=== PATIENT | female | born 1975 | race American Indian/Alaskan Native ===

== ENCOUNTER 2017-02-22 15:29 | Emergency (ER) | payer SELFPAY ==
[2017-02-22 21:08] LABS: Bacteria,Urine 1+ /HPF (Negative); Bilirubin,Urine NEG (Negative); Blood,Urine SM (Negative); Color,Urine Yellow (Yellow); Mucus,Urine 3+ /HPF; Nitrite,Urine NEG (Negative); Protein,Urine <15 mg/dL mg/dL (Negative); Urobilinogen,Urine < 2.0 mg/dL (<2.0)
[2017-02-22] MEDS ORDERED: NORCO 5/325 PO ONE (21:11)
[2017-02-22] MEDS ORDERED: FLEXERIL PO ONE (21:11)
[2017-02-22 21:15] LABS: HCG Qualitative,Urine Negative (Negative)
--- NOTE | 2017-02-22 21:21 | Emergency Department Report ---
ED Back Pain/Injury HPI - General Chief Complaint: Back Pain/Injury Stated Complaint: LOWER BACK PAIN Time Seen by Provider: 02/22/17 21:11 Source: patient Limitations: No Limitations - History of Present Illness Initial Comments: Patient 41-year-old -[place] female with a history of lumbar Patient states 4/10 lumbar pain radiating to her left lateral thigh 1 week no numbness tingling or paralysis no decreased range of motion no loss of decrease in bladder or bowel function patient denies injury fall or trauma MD Complaint: back pain Onset/Timin -: week(s) Similar Symptoms Previously: Yes Place: home Radiation: none, left leg Severity: moderate Severity scale (0 -10): 4 Quality: aching Consistency: intermittent Improves With: other (rest) Worsens With: movement, other (bending twisting) Associated Symptoms: denies other symptoms. denies: numbness, difficulty urinating, incontinence, fever/chills - Related Data Previous Rx's Medication Instructions Recorded Last Taken Type Acetaminophen 1,000 mg PO QID PRN #30 tablet 02/22/17 Unknown Rx Cephalexin [Keflex] 500 mg PO Q12HR #14 cap 02/22/17 Unknown Rx Cyclobenzaprine [Flexeril] 10 mg PO BID PRN #30 tablet 02/22/17 Unknown Rx Allergies Allergy/AdvReac Type Severity Reaction Status Date / Time aspirin Allergy Nausea Verified 02/22/17 16:42 ED Review of Systems ROS: Stated complaint: LOWER BACK PAIN Other details as noted in HPI Constitutional: denies: chills, fever Eyes: denies: eye pain, eye discharge, vision change ENT: denies: ear pain, throat pain Respiratory: denies: cough, shortness of breath, wheezing Cardiovascular: denies: chest pain, palpitations Endocrine: no symptoms reported Gastrointestinal: denies: abdominal pain, nausea, diarrhea Genitourinary: denies: urgency, dysuria, discharge Musculoskeletal: back pain. denies: joint swelling, arthralgia, myalgia Skin: denies: rash, lesions Neurological: denies: headache, weakness, paresthesias Psychiatric: denies: anxiety, depression Hematological/Lymphatic: denies: easy bleeding, easy bruising ED Past Medical Hx - Past Medical History Previous Medical History?: No - Surgical History Past Surgical History?: No - Social History Smoking Status: Never Smoker Substance Use Type: Alcohol - Medications Home Medications: Home Medications Medication Instructions Recorded Confirmed Last Taken Type Acetaminophen 1,000 mg PO QID PRN #30 tablet 02/22/17 Unknown Rx Cephalexin [Keflex] 500 mg PO Q12HR #14 cap 02/22/17 Unknown Rx Cyclobenzaprine [Flexeril] 10 mg PO BID PRN #30 tablet 02/22/17 Unknown Rx ED Physical Exam - General Limitations: No Limitations General appearance: alert, in no apparent distress - Head Head exam: Present: atraumatic, normocephalic - Eye Eye exam: Present: normal appearance - ENT ENT exam: Present: mucous membranes moist - Neck Neck exam: Present: normal inspection - Respiratory Respiratory exam: Present: normal lung sounds bilaterally. Absent: respiratory distress - Cardiovascular Cardiovascular Exam: Present: regular rate, normal rhythm. Absent: systolic murmur, diastolic murmur, rubs, gallop - GI/Abdominal GI/Abdominal exam: Present: soft, normal bowel sounds. Absent: distended, tenderness, guarding, rebound, rigid, mass, bruit, hernia - Rectal Rectal exam: Present: deferred - Extremities Exam Extremities exam: Present: normal inspection, full ROM. Absent: tenderness - Back Exam Back exam: Present: normal inspection, full ROM, tenderness (left lateral lumbar tenderness no posterior vertebral point tenderness mild paraspinus tenderness no lower extremity), muscle spasm, paraspinal tenderness. Absent: CVA tenderness (R), CVA tenderness (L), vertebral tenderness, rash noted - Neurological Exam Neurological exam: Present: alert, oriented X3, CN II-XII intact, normal gait, reflexes normal - Expanded Neurological Exam Expanded Patient oriented to: Present: person, place, time Speech: Present: fluid speech Cranial nerves: EOM's Intact: Normal, Gag Reflex: Normal, Tongue Deviation: Normal, Nystagmus: Normal, Facial Sensation: Normal Cerebellar function: Finger to Nose: Normal, Heel to Mims: Normal, Romberg: Normal Upper motor neuron: [place] Neglect: Normal, Pronator Drift: Normal, Babinski Sign : Normal, Sensory Extinction: Normal Sensory exam: Upper Extremity Light Touch: Normal, Upper Extremity Pin Prick: Normal, Upper Extremity Temperature: Normal, UE 2 Point Discrimination: Normal, Lower Extremity Light Touch: Normal, Lower Extremity Pin Prick: Normal, Lower Extremity Temperature: Normal, LE 2 Point Discrimination: Normal Motor strength exam: RUE: 5, LUE: 5, RLE: 5, LLE: 5 DTR: bicep (R): 2+, bicep (L): 2+, tricep (R): 2+, tricep (L): 2+, knee (R): 2+ , knee (L): 2+, ankle (R): 2+, ankle (L): 2+ Best Eye Response (Sunday): (4) open spontaneously Best Motor Response (Sunday): (6) obeys commands Best Verbal Response (Sunday): (5) oriented Sunday Total: 15 - Psychiatric Psychiatric exam: Present: normal affect, normal mood - Skin Skin exam: Present: warm, dry, intact, normal color. Absent: rash ED Course Vital Signs 02/22/17 16:42 Temperature 98.2 F Pulse Rate 76 Respiratory 20 Rate Blood Pressure 127/83 O2 Sat by Pulse 97 Oximetry ED Medical Decision Making - Lab Data Laboratory Tests 02/22/17 20:35 Urine Color Yellow Urine Turbidity Slightly-cloudy Urine pH 5.0 Ur Specific [place] 1.032 H Urine Protein <15 mg/dl Urine Glucose (UA) Neg Urine Ketones 20 Urine Blood Sm Urine Nitrite Neg Urine Bilirubin Neg Urine Urobilinogen < 2.0 Ur Leukocyte Esterase Mod Urine WBC (Auto) 13.0 H Urine RBC (Auto) 7.0 U Epithel Cells (Auto) 13.0 Urine Bacteria (Auto) 1+ Urine Mucus 3+ Urine HCG, Qual Negative - Medical Decision Making pt is 41 y/o aaf with hx of low back pain, who presents for low back pain x 1 week pt denies fall injury or trauma , pain described as 4/10m aching radiating for low back to left lateral thigh and leg, exam: rom intact there is no swelling no ecchymosis no deformity rom intact no weakness, pos straight leg at 60 degrees, there is no cva tenderness 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 Critical care attestation.: If time is entered above; I have spent that time in minutes in the direct care of this critically ill patient, excluding procedure time. ED Disposition Clinical Impression: Low back strain Qualifiers: Encounter type: initial encounter Qualified Code(s): S39.012A - Strain of muscle, fascia and tendon of lower back, initial encounter UTI (urinary tract infection) Qualifiers: Urinary tract infection type: acute cystitis Hematuria presence: without hematuria Qualified Code(s): N30.00 - Acute cystitis without hematuria Chronic low back pain Qualifiers: Back pain laterality: left Sciatica presence: with sciatica Sciatica laterality : sciatica of left side Qualified Code(s): M54.42 - Lumbago with sciatica, left side; G89.29 - Other chronic pain; G89.29 - Other chronic pain Disposition: TO HOME OR SELFCARE Is pt being admited?: No Does the pt Need Aspirin: No Condition: Good Instructions: Low Back Strain (ED), Core Strengthening Exercises (GEN), Urinary Tract Infection in Women (ED) Prescriptions: Acetaminophen 1,000 mg PO QID PRN #30 tablet PRN Reason: Pain Cephalexin [Keflex] 500 mg PO Q12HR #14 cap Cyclobenzaprine [Flexeril] 10 mg PO BID PRN #30 tablet PRN Reason: Muscle Spasm Referrals: POLI HUTTON MD [Staff Physician] - 3-5 Days Forms: Work/School Release Form(ED) Time of Disposition: 21:37
[2017-02-22 23:08] VITALS: BP 142/75
== END 2017-02-22 21:50 | disposition home or self-care (01) ==
LOC: ED 15:29
DX: S39.012A Strain of muscle, fascia and tendon of lower back, initial encounter (principal); N30.00 Acute cystitis without hematuria; M54.42 Lumbago with sciatica, left side; G89.29 Other chronic pain; Z88.6 Allergy status to analgesic agent; X58.XXXA Exposure to other specified factors, initial encounter; Y93.89 Activity, other specified; Y92.89 Other specified places as the place of occurrence of the external cause; Y99.8 Other external cause status
CPT/HCPCS: 81001; 81025; 99283